=== PATIENT | female | born 1960 | race Caucasian/White ===

== ENCOUNTER 2017-08-17 08:50 | Emergency (ER) | payer OTHER ==
[2017-08-17] MEDS: IBUPROFEN 600 MG TAB PO (11:08)
[2017-08-17] MEDS: ACETAMINOPHEN 325 MG TAB PO (11:08)
== END 2017-08-17 12:28 | disposition home or self-care (01) ==
LOC: FTE 08:50
DX: J10.1 Influenza due to other identified influenza virus with other respiratory manifestations (principal)
CPT/HCPCS: 71045; 87400; 99284-25

== ENCOUNTER 2017-08-20 09:04 | Emergency (ER) | payer OTHER | END 2017-08-20 12:48 | disposition home or self-care (01) | LOC: FTE 09:04 | DX: J03.90 Acute tonsillitis, unspecified (principal); J20.9 Acute bronchitis, unspecified | CPT/HCPCS: 93005; 99284-25 ==

== ENCOUNTER 2018-05-09 07:12 | Emergency (ER) | payer OTHER ==
[2018-05-09 08:05] LABS: ADD MAN DIFF? NO
[2018-05-09] MEDS: KETOROLAC 15 MG INJ IV (08:05)
[2018-05-09 08:06] LABS: BASOPHIL # 0.1 10^3/ul (0.0-0.1); BASOPHILS % 0.7 % (0.0-2.0); HEMATOCRIT 44.7 % (37.0-47.0); HEMOGLOBIN 14.5 g/dl (12.0-16.0); LYMPHOCYTES # 2.4 10^3/ul (0.8-2.9); LYMPHOCYTES % 20.3 % (15.0-51.0); MEAN CORPUSCULAR HEMOGLOBIN 29.3 pg (29.0-33.0); MEAN CORPUSCULAR HGB CONC 32.4 g/dl (32.0-37.0); MEAN CORPUSCULAR VOLUME 90.3 fl (82.0-101.0); MONOCYTES % 8.8 % (0.0-11.0); NEUTROPHIL # 8.2 10^3/ul (1.6-7.5); PLATELET COUNT 275 10^3/UL (140-415); RED BLOOD COUNT 4.95 10^6/ul (4.20-5.40); RED CELL DISTRIBUTION WIDTH 13.5 % (11.5-14.5)
[2018-05-09 08:06] LABS: WHITE BLOOD COUNT 11.7 10^3/ul (4.8-10.8)
[2018-05-09 08:37] LABS: ADD UMIC YES; UR ASCORBIC ACID NEGATIVE (NEGATIVE); UR BILIRUBIN (Dip) NEGATIVE (NEGATIVE); UR BLOOD (Dip) 2+ mg/dL (NEGATIVE); UR CLARITY SLIGHTLY CLOUDY (CLEAR); UR COLOR YELLOW (YELLOW); UR GLUCOSE (Dip) NEGATIVE (NEGATIVE); UR KETONES (Dip) NEGATIVE (NEGATIVE); UR LEUKOCYTE ESTERASE (Dip) NEGATIVE Leu/ul (NEGATIVE); UR MUCUS FEW /HPF (NONE SEEN); UR NITRITE (Dip) NEGATIVE (NEGATIVE); UR RBC 27 /HPF (0-5); UR SPECIFIC GRAVITY (Dip) 1.025 (1.003-1.030); UR SQUAMOUS EPITHELIAL CELL FEW /HPF (FEW); UR TOTAL PROTEIN (Dip) 2+ mg/dl (NEGATIVE); UR UROBILINOGEN (Dip) 2+ mg/dL (NEGATIVE); UR WBC 2 /HPF (0-5)
[2018-05-09 08:38] LABS: ALANINE AMINOTRANSFERASE 51 IU/L (13-69); ALBUMIN 3.7 g/dl (3.3-4.9); ALBUMIN/GLOBULIN RATIO 0.92; ALKALINE PHOSPHATASE 86 IU/L (42-121); ANION GAP 9 (5-13); ASPARTATE AMINO TRANSFERASE 36 IU/L (15-46); BILIRUBIN,INDIRECT 0.5 mg/dl (0-1.1); BILIRUBIN,TOTAL 0.5 mg/dl (0.2-1.3); BLOOD UREA NITROGEN 17 mg/dl (7-20); CALCIUM 9.1 mg/dl (8.4-10.2); CARBON DIOXIDE 27 mmol/L (21-31); CHLORIDE 106 mmol/L (97-110); CREATININE 0.71 mg/dl (0.44-1.00); GLUCOSE 108 mg/dl (70-220); LIPASE 84 U/L (23-300); POTASSIUM 3.7 mmol/L (3.5-5.1); SODIUM 142 mmol/L (135-144); TOTAL PROTEIN 7.7 g/dl (6.1-8.1)
== END 2018-05-09 09:30 | disposition home or self-care (01) ==
LOC: E/R 07:12
DX: R10.84 Generalized abdominal pain (principal); R31.21 Asymptomatic microscopic hematuria; R11.0 Nausea; R40.2142 Coma scale, eyes open, spontaneous, at arrival to emergency department; R40.2252 Coma scale, best verbal response, oriented, at arrival to emergency department; R40.2362 Coma scale, best motor response, obeys commands, at arrival to emergency department
CPT/HCPCS: 36415; 76830; 76856; 80053; 81001; 83690; 85025; 96374; 99285-25

== ENCOUNTER 2018-10-25 09:13 | Day surgery (SDC) | payer OTHER ==
[~2018-10-25 09:13] MED LIST: LIDOCAINE 2% (SDV) 5 ML INJ; PROPOFOL 200 MG INJ
[2018-10-25] MEDS ORDERED: PROPOFOL 40 ML (12:15)
== END 2018-10-25 13:52 | disposition home or self-care (01) ==
LOC: GIL 09:13
DX: Z12.11 Encounter for screening for malignant neoplasm of colon (principal); K57.30 Diverticulosis of large intestine without perforation or abscess without bleeding; K64.9 Unspecified hemorrhoids; J45.909 Unspecified asthma, uncomplicated
CPT/HCPCS: 45378

== ENCOUNTER 2019-01-25 16:12 | Emergency (ER) | payer OTHER | END 2019-01-25 17:10 | disposition home or self-care (01) | LOC: FTE 16:12 | DX: J20.9 Acute bronchitis, unspecified (principal) | CPT/HCPCS: 99283; Z7502 ==